=== PATIENT | female | born 1985 | race Caucasian/White ===

== ENCOUNTER 2016-08-19 17:49 | Emergency (ER) | payer OTHER ==
[2016-08-19 17:52] VITALS: BMI 26.1
[2016-08-19 20:01] LABS: URINE APPEARANCE CLOUDY; URINE BILIRUBIN NEGATIVE (NEGATIVE); URINE BLOOD NEGATIVE (NEGATIVE); URINE COLOR YELLOW; URINE GLUCOSE (UA) NEGATIVE (NEGATIVE); URINE KETONE 1+ (NEGATIVE); URINE LEUK ESTERASE TRACE (NEGATIVE); URINE NITRITE NEGATIVE (NEGATIVE); URINE PROTEIN 1+ (NEGATIVE); URINE UROBILINOGEN NEGATIVE E.U./dl (0.2-1.0)
[2016-08-19 20:07] LABS: URINE BACTERIA RARE /hpf (NONE SEEN); URINE MUCUS RARE; URINE RBC 6 /hpf (0-3); URINE WBC 14 /hpf (3-5); YEAST FEW
--- NOTE | 2016-08-19 20:16 | PDOC ---
History of Present Illness - General History Source: Patient, Old Records Exam Limitations: No Limitations - History of Present Illness Initial Comments: 08/19/16 21:17 The patient is a 31 year old female presenting with her family, with no significant past medical history, who presents to the emergency department with abdominal pain, nausea and vomiting onset today. She describes her abdominal pain as localized in the epigastric region, ranging from mild to moderate, with some mild radiation to the back. She denies any modifying factors. She reports that her vomit is nonbilious and nonbloody. She states taht her menstrual cycle has been absent since May 2016. For which she has followed up with her PMD, with no clear answer as to what is going on. The patient denies chest pain, shortness of breath, headache and dizziness. Denies fever, chills,diarrhea and constipation. Denies dysuria, frequency, urgency and hematuria. Allergies: None Past surgical history: None reported Social history: No alcohol, tobacco or drug use reported <Yaw Garcia - Last Filed: 08/19/16 23:57> <Moisés Barajas - Last Filed: 08/20/16 01:13> - General Chief Complaint: Pain Stated Complaint: STOMACH PAIN Time Seen by Provider: 08/19/16 19:51 Past History <Yaw Garcia - Last Filed: 08/19/16 23:57> - Past Medical History Asthma: No Cancer: No Cardiac Disorders: No Diabetes: No HTN: No Suicide Attempt (Hx): No Seizures: No Thyroid Disease: No - Surgical History Abdominal Surgery: Yes - Reproductive History Is Patient Now?: No (#): 5 Para: 2 Therapeutic (s) & number: Yes (1) Spontaneous : 1 - Psycho/Social/Smoking Cessation Hx Anxiety: No Suicidal Ideation: No Smoking History: Never smoked Have you smoked in the past 12 months: No Hx Alcohol Use: No Drug/Substance Use Hx: No Substance Use Type: None Hx Substance Use Treatment: No <Moisés Barajas - Last Filed: 08/20/16 01:13> - Past Medical History Allergies/Adverse Reactions: Allergies Allergy/AdvReac Type Severity Reaction Status Date / Time No Known Allergies Allergy Verified 08/19/16 17:52 Home Medications: Ambulatory Orders Amoxicillin/Potassium Clav [Augmentin 875-125 Tablet] 1 each PO BID #20 tablet 08/20/16 Tramadol HCl 50 mg PO TID #14 tablet MDD 3 08/20/16 Abd/GI Specific PMHX - Complaint Specific PMHX Colitis: No Diverticulitis: No Gall Bladder Disease: No GERD: No Hepatitis: No Irritable Bowel Synd (IBS): No Pancreatitis: No GI Ulcer Disease: No <Aggie Barajasis - Last Filed: 08/20/16 01:13> Review of Systems - Review of Systems Able to Perform ROS?: Yes Comments:: 08/19/16 21:18 CONSTITUTIONAL: No fever, no chills, no fatigue EYES: No visual changes ENT: No ear pain, no sore throat CARDIOVASCULAR: No chest pain, no palpitations RESPIRATORY: No cough, no SOB GI: (+) Abdominal pain, nausea and vomiting. No constipation, no diarrhea GENITOURINARY: No dysuria, no frequency, no hematuria MUSKULOSKELETAL: No backpain, no joint pain, no myalgias SKIN: No rash NEURO: No headache <Yaw Garcia - Last Filed: 08/19/16 23:57> *Physical Exam - Vital Signs Last Vital Signs Temp Pulse Resp BP Pulse Ox 97.4 F L 91 H 20 139/65 100 08/19/16 17:50 08/19/16 17:50 08/19/16 17:50 08/19/16 17:50 08/19/16 17:50 <Yaw Garcia - Last Filed: 08/19/16 23:57> - Vital Signs Last Vital Signs Temp Pulse Resp BP Pulse Ox 97.4 F L 91 H 20 139/65 100 08/19/16 17:50 08/19/16 17:50 08/19/16 17:50 08/19/16 17:50 08/19/16 17:50 - Physical Exam Comments: 08/19/16 19:05 EXAMINATION CONSTITUTIONAL: Well-appearing; well-nourished; in no apparent distress HEAD: Normocephalic; atraumatic EYES: PERRL; EOM intact; no scleral icterus ENMT: External appears normal; mm-dry NECK: Supple; non-tender; no cervical lymphadenopathy CARD: Normal S1, S2; no murmurs, rubs, or gallops RESP: Normal chest excursion with respiration; breath sounds clear and equal bilaterally; no wheezes, rhonchi, or rales ABD: Soft, non-distended; + mild epigastric and right upper quadrant tenderness to palpation; Chong's is negative; no palpable organomegaly, no palpable hernias; no CVA tenderness bilaterally; EXT: Normal ROM in all four extremities; non-tender to palpation; distal pulses intact SKIN: Warm, dry, no rash NEURO: No focal neurological deficiencies. <Moisés Barajas - Last Filed: 08/20/16 01:13> ED Treatment Course - LABORATORY CBC & Chemistry Diagram: 08/19/16 20:40 08/19/16 20:40 - ADDITIONAL ORDERS Additional order review: Laboratory Results 08/19/16 19:40 Urine Color Yellow Urine Appearance Cloudy Urine pH 9.0 H D Urine Protein 1+ H Urine Glucose (UA) Negative Urine Ketones 1+ H Urine Blood Negative Urine Nitrite Negative Urine Bilirubin Negative Urine Urobilinogen Negative Ur Leukocyte Esterase Trace H Urine RBC 6 Urine WBC 14 Ur Epithelial Cells Rare Urine Bacteria Rare Urine Mucus Rare Urine Yeast Few Urine HCG, Qual Negative 08/19/16 20:40 RBC 4.85 MCV 84.1 MCHC 32.8 RDW 12.8 D MPV 7.9 Neutrophils % 90.3 H D Lymphocytes % 6.8 L D Monocytes % 2.7 L Eosinophils % 0.1 Basophils % 0.1 - RADIOLOGY Radiograph Interpretation: 08/19/16 23:47 Abdominal ultrasound Reviewed by: Dr. Queenie Hidalgo Impression: Mild hepatomegaly with a slightly coarse echotexture, rule out fatty infiltration versus hepatocellular disease. Gallstone measuring 2.1 cm at or adjacent to the level of the neck with a small sluge. Thickening of the gallbladder wall and without evidence of pericholecystic free fluid. - Medications Given in the ED: ED Medications Discontinued Medications Generic Name Dose Route Start Last Admin Trade Name Freq PRN Reason Stop Dose Admin Al Hydroxide/Mg Hydroxide 30 ml 08/19/16 20:23 08/19/16 20:47 Mylanta Oral Suspension - PO 08/19/16 20:24 30 ml ONCE ONE Administration Famotidine/Sodium Chloride 50 mls @ 100 mls/hr 08/19/16 20:23 08/19/16 20:47 Pepcid 20 Mg Premixed Ivpb - IVPB 08/19/16 20:52 100 mls/hr ONCE ONE Administration <Yaw Garciae - Last Filed: 08/19/16 23:57> - LABORATORY CBC & Chemistry Diagram: 08/19/16 20:40 08/19/16 20:40 - ADDITIONAL ORDERS Additional order review: Laboratory Results 08/19/16 19:40 Urine Color Yellow Urine Appearance Cloudy Urine pH 9.0 H D Urine Protein 1+ H Urine Glucose (UA) Negative Urine Ketones 1+ H Urine Blood Negative Urine Nitrite Negative Urine Bilirubin Negative Urine Urobilinogen Negative Ur Leukocyte Esterase Trace H Urine HCG, Qual Negative <Moisés Barajas - Last Filed: 08/20/16 01:13> Medical Decision Making - Medical Decision Making 08/19/16 23:57 Dr. Briones was consulted regarding the patient at 11:52pm. He advices that the patient be discharged and follow up with him at his office. [phone] <Yaw Garcia - Last Filed: 08/19/16 23:57> - Medical Decision Making 08/20/16 01:07 Patient is a 31-year-old female who presented to the ER with atraumatic epigastric and right upper quadrant pain precipitated by fatty and greasy meals. Patient's had intermittent symptoms for the past several months, but they 've become more pronounced over the past several days. In the ER, patient is awake and alert, nontoxic-appearing, afebrile. Physical exam reveals mild right quadrant epigastric tenderness. CBC reveals leukocytosis with predominance of neutrophils. CMP reveals no evidence of abnormal LFTs. Right upper quadrant ultrasound reveals gallbladder stone, sludge and thickening of approximately 6.5 mm. There is no evidence of pericholecystic fluid. Given the presentation, I believe the patient's symptoms are consistent with chronic cholecystitis. I discussed the case with Dr. Briones who agrees with the plan of discharge with by mouth antibiotics, pain medication and outpatient follow-up. Patient has received a dose of IV Zosyn and has been advised of the plan of care and is expressed understanding. <Moisés Barajas - Last Filed: 08/20/16 01:13> *DC/Admit/Observation/Transfer - Attestations Scribe Attestion: 08/19/16 21:18 Documentation prepared by Yaw Garcia, acting as certified medical technician assistant for Moisés Barajas MD <Yaw Garcia - Last Filed: 08/19/16 23:57> <Moisés Barajas - Last Filed: 08/20/16 01:13> Diagnosis at time of Disposition: Chronic cholecystitis - Discharge Dispostion Disposition: HOME Condition at time of disposition: Stable - Referrals Referrals: Sally Curtis MD [Primary Care Provider] - Davion Briones MD [Staff Physician] - - Patient Instructions Printed Discharge Instructions: DI for Cholecystitis Additional Instructions: Your of chronic cholecystitis. Take antibiotics as prescribed. Follow up with surgery promptly. Return immediately for high fever, persistent vomiting, severe pain.
[2016-08-19] MEDS ORDERED: SODIUM CHLORIDE 1,000 ML IV STA (20:22)
[2016-08-19] MEDS ORDERED: MAG HYDROX/AL HYDROX/SIMETH 30 ML UNIT-DOSE CUP PO ONE (20:23)
[2016-08-19] MEDS ORDERED: FAMOTIDINE 20 MG/50 ML IVPB 50 ML IVPB ONE ×2 (20:23→20:30)
[2016-08-19] MEDS ORDERED: MAG HYDROX/AL HYDROX/SIMETH 30 ML UNIT-DOSE CUP ONE (20:30)
[2016-08-19 20:48] LABS: BASOPHIL 0.1 % (0-2.0); EOSINOPHIL 0.1 % (0-4.5); MCH 27.5 pg (25.7-33.7); MCHC 32.8 g/dl (32.0-36.0); MEAN CELL VOLUME 84.1 fl (80-96); MEAN PLT VOLUME 7.9 fl (7.5-11.1); NEUTROPHILS 90.3 % (42.8-82.8); PLATELET COUNT 332 K/MM3 (134-434); RDW 12.8 % (11.6-15.6); WHITE BLOOD COUNT 15.7 K/mm3 (4.0-10.0)
[2016-08-19 21:24] LABS: ALBUMIN 4.3 g/dl (3.4-5.0); ALK PHOS 123 U/L (45-117); ANION GAP 10 (8-16); BILIRUBIN,TOTAL 0.4 mg/dL (0.2-1.0); CALCIUM 9.4 mg/dL (8.5-10.1); CO2 27 mmol/L (21-32); COCKROFT - GAULT 150.5775; CREATININE 0.6 mg/dL (0.55-1.02); GLUCOSE,RANDOM 106 mg/dL (74-106); SGOT/AST 16 U/L (15-37); SGPT/ALT 21 U/L (12-78)
[2016-08-19] MEDS ORDERED: PIPERACILLIN/TAZOB 3.375 GM/50 ML PRE-DOCKED IV ONE (23:58)
[2016-08-20] MEDS ORDERED: PIPERACILLIN/TAZOB 3.375 GM 50 ML IVPB ONE (00:05)
[2016-08-20 01:27] VITALS: BP 118/77; PULSE 82; TEMP 98.1
== END 2016-08-20 01:27 | disposition home or self-care (01) ==
LOC: JER 17:49
PROC: 3E033GC Introduction of Other Therapeutic Substance into Peripheral Vein, Percutaneous Approach (ICD-10-PCS; principal; 2016-08-19)
DX: K81.1 Chronic cholecystitis (principal)
CPT/HCPCS: 36415; 76705-TC; 80053; 81003; 81015; 83690; 84703; 85025; 87086; 99282-25

== ENCOUNTER 2016-12-21 17:49 | Emergency (ER) | payer OTHER ==
[2016-12-21 17:53] VITALS: BMI 24.0
--- NOTE | 2016-12-21 18:23 | PDOC ---
Attending Attestation - Resident Resident Name: Canelo Montero - ED Attending Attestation I have performed the following: I have examined & evaluated the patient, The case was reviewed & discussed with the resident, I agree w/resident's findings & plan, Exceptions are as noted - HPI HPI: 12/21/16 18:33 31 yo female who finished her menses last week presents w 4 days of suprapubic tenderness and 1 day of left left sided pain above her L hip no h/o trauma recently PSH cholecytectomy 2 months ago - Physicial Exam PE: 12/21/16 18:37 Exam reveals a WNWD 31 yo female with 4 days of suprapubixc discomfort and 1 day of L abd pain near her L hip HEENT wnl lings cta b/l cvr [id number] abd soft,no rebound and no guarding ,very focused tenderness next to L hip no CVA tenderness extremities full range of motion.no deformity neuro axox3,ambulatory <Alberta Neville - Last Filed: 12/21/16 18:37> - Medical Decision Making 12/21/16 22:54 EXAM#: TYPE/EXAM: RESULT: [id number] US/PELVIC / BLADDER US Lower abdominal pain. Pelvis ultrasound, transvesical LMP is 12/03/2016 No prior is available for comparison. The uterus is anteverted measuring 7.8 x 4.2 cm with a homogeneous echotexture. Endometrial stripe measures 4.5 mm in thickness which is within normal limits. The left ovary measures 3.5 x 2.3 cm with a few small follicles and normal vascular flow. The right ovary measures 3 x 2.2 cm with a few small follicles and normal vascular flow. There is no free fluid in the cul-de-sac Impression: Unremarkable examination. The uterus and both ovaries appear unremarkable. Reported By: Queenie Hidalgo MD 12/21/16 2248 12/21/16 22:54 Documentation prepared by Nayeli Braxton, acting as medical claims representative for Alberta Neville MD <Nayeli Braxton - Last Filed: 12/21/16 22:55>
--- NOTE | 2016-12-21 18:46 | PDOC ---
History of Present Illness - General Chief Complaint: Pain Stated Complaint: PAIN, ACUTE Time Seen by Provider: 12/21/16 17:58 - History of Present Illness Initial Comments: 12/21/16 18:46 The patient is a 31 year old female with no significant PMH who presents for evaluation of lower abdominal pain. The patient reports a 4 day history of lower abdominal pain that she describes as crampy in nature that worsened today and moved to her left side prompting her presentation to the ED today. She denies any burning or pain on urination. She denies fevers, chills, SOB, chest pain, vaginal bleeding, vaginal discharge, or changes with bowel movements. Past History - Past Medical History Allergies/Adverse Reactions: Allergies Allergy/AdvReac Type Severity Reaction Status Date / Time No Known Allergies Allergy Verified 12/21/16 17:50 Home Medications: Ambulatory Orders NK [No Known Home Medication] 12/21/16 Asthma: No Cancer: No Cardiac Disorders: No Diabetes: No HTN: No Seizures: No Thyroid Disease: No - Surgical History Abdominal Surgery: Yes Cholecystectomy: Yes - Reproductive History Is Patient Now?: No (#): 5 Para: 2 Therapeutic (s) & number: Yes (1) Spontaneous : 1 - Suicide/Smoking/Psychosocial Hx Smoking History: Never smoked Have you smoked in the past 12 months: No Information on smoking cessation initiated: No Hx Alcohol Use: No Drug/Substance Use Hx: No Substance Use Type: None Hx Substance Use Treatment: No Review of Systems - Review of Systems Comments:: 12/21/16 19:01 Constitutional: No fevers, chills, fatigue, malaise HEENT: No Rhinorrhea, nasal congestion, Cardiovascular: No chest pain, syncope, palpitations, lightheadedness Respiratory: No Cough, SOB, Gastrointestinal: No Abdominal pain, Nausea, Vomiting, Constipation, Diarrhea, Genitourinary: No Dysuria, Frequency, Urgency, Hesitancy, Hematuria, Flank pain Musculoskeletal: No Myalgia, arthralgia Skin: No rashes, bruising, pallor Neurologic: Headache. No Dizziness, Numbness, Weakness, or Tingling *Physical Exam - Vital Signs Last Vital Signs Temp Pulse Resp BP Pulse Ox 98.1 F 80 18 132/55 100 12/21/16 17:50 12/21/16 17:50 12/21/16 17:50 12/21/16 17:50 12/21/16 17:50 - Physical Exam Comments: 12/21/16 19:05 General Appearance: Nourished. No Apparent Distress HEENT: EOMI, BRONWYN. No Pharyngeal Erythema, Tonsillar Exudate, Tonsillar Erythema Neck: No Cervical Lymphadenopathy Respiratory/Chest: Lungs Clear, Normal Breath Sounds. No Crackles, Rales, Rhonchi, Wheezing Cardiovascular: Regular Rhythm, Regular Rate. No Murmur, Gallops, Rubs Gastrointestinal/Abdominal: Normal Bowel Sounds, Soft. Mild tenderness to palpation of the left flank. No Guarding, Rebound, Pelvic Exam: Normal external exam. Cervical Os closed. No CMT, No right adnexal tenderness. Mild left adnexal tenderness. Musculoskeletal: No CVA Tenderness Extremity: Normal Capillary Refill Integumentary: Normal Color, Dry, Warm Neurologic: Fully Oriented, Alert, Normal Mood/Affect, Normal Response, Medical Decision Making - Medical Decision Making 12/21/16 19:06 The patient is a 31 year old female with no significant PMH who presents for evaluation of lower abdominal pain. Differential includes but is not limited to : UTI, Pylonephritis, Ovarian cyst, ectopic . Given the patient's pelvic exam with adenexal tenderness, we will obtain a transvaginal pelvic US to evaluate for ovarian cyst or torsion. We will also send a UA and urine preg to evaluate for UTI or Pyelonephritis. We will continue to monitor and reassess. 12/21/16 22:56 UA and Urine are negative. Pelvic US is negative as read by our radiologist. We feel comfortable discharging the patient home at this time with primary care follow up if her symptoms persist. We discussed the results with the patient as well as the plan and she voiced understanding and is agreeable. *DC/Admit/Observation/Transfer Diagnosis at time of Disposition: Lower abdominal pain - Discharge Dispostion Disposition: HOME Condition at time of disposition: Improved Admit: No - Referrals Referrals: Eduar Bloom [Primary Care Provider] - - Patient Instructions Printed Discharge Instructions: DI for Acute Abdomen Additional Instructions: Please return to the ER if you experience concerning or worsening symptoms. Please follow up with your primary care provider if you have persistent symptoms.
[2016-12-21 20:46] LABS: URINE APPEARANCE CLEAR; URINE BILIRUBIN NEGATIVE (NEGATIVE); URINE BLOOD NEGATIVE (NEGATIVE); URINE COLOR STRAW; URINE GLUCOSE (UA) NEGATIVE (NEGATIVE); URINE KETONE NEGATIVE (NEGATIVE); URINE NITRITE NEGATIVE (NEGATIVE); URINE PROTEIN NEGATIVE (NEGATIVE); URINE UROBILINOGEN NEGATIVE mg/dL (0.2-1.0)
[2016-12-21 22:34] LABS: URINE LEUK ESTERASE Negative (NEGATIVE)
[2016-12-21 23:11] VITALS: BP 122/83; PULSE 81; TEMP 98.2
== END 2016-12-21 23:11 | disposition home or self-care (01) ==
LOC: JER 17:49
DX: R10.30 Lower abdominal pain, unspecified (principal)
CPT/HCPCS: 76856-TC; 81003; 84703; 99283-25

== ENCOUNTER 2024-05-02 13:08 | Emergency (ER) | payer OTHER ==
[2024-05-02 13:24] VITALS: BP 124/86; PULSE 102; RESP 18; TEMP 98.6; BMI 30.2
[2024-05-02] MEDS ORDERED: ACETAMINOPHEN INJECTION 100 ML ONE (14:24)
[2024-05-02] MEDS ORDERED: ONDANSETRON 4 MG/2 ML VIAL ONE (14:25)
[2024-05-02 14:38] LABS: BASO % 0.3 % (0-2.0); EOS % 0.4 % (0-4.5); HEMATOCRIT 40.1 % (32.4-45.2); HEMOGLOBIN 13.2 GM/dL (10.7-15.3); LYMPH % 19.1 % (8-40); MCH 27.9 pg (25.7-33.7); MCHC 32.9 g/dl (32.0-36.0); MEAN CELL VOLUME 84.9 fl (80-96); MEAN PLT VOLUME 7.5 fl (7.5-11.1); MONO % 10.6 % (3.8-10.2); NEUT % 69.6 % (42.8-82.8); PLATELET COUNT 323 10^3/uL (134-434); RBC 4.73 M/mm3 (3.60-5.2); RDW 13.5 % (11.6-15.6); WHITE BLOOD COUNT 6.4 K/mm3 (4.0-10.0)
[2024-05-02 14:40] LABS: HCG,QUALITATIVE URINE Negative
[2024-05-02 14:41] LABS: EPI CELLS >36 /uL (0-25.1); HYALINE CASTS 4 /uL (0-3.1); URINE APPEARANCE CLOUDY; URINE BACTERIA 473 /uL (0-1359); URINE BILIRUBIN NEGATIVE (NEGATIVE); URINE COLOR DK YELLOW; URINE GLUCOSE (UA) NEGATIVE (NEGATIVE); URINE KETONE TRACE (NEGATIVE); URINE LEUK ESTERASE NEGATIVE (NEGATIVE); URINE NITRITE NEGATIVE (NEGATIVE); URINE PROTEIN 1+ (NEGATIVE); URINE WBC 48 /uL (0-25.8)
[2024-05-02 14:53] LABS: POTASSIUM 3.8 mmol/L (3.5-5.1)
[2024-05-02 14:55] LABS: ALBUMIN 3.5 g/dl (3.4-5.0)
[2024-05-02 14:57] LABS: MAGNESIUM 2.1 mg/dL (1.8-2.4)
[2024-05-02 14:59] LABS: BILIRUBIN,TOTAL 0.4 mg/dL (0.2-1); CREATININE 0.7 mg/dL (0.55-1.3)
[2024-05-02 15:01] LABS: BLOOD UREA NITROGEN 9.3 mg/dL (7-18); TOT PROT 7.4 g/dl (6.4-8.2)
[2024-05-02] MEDS: ONDANSETRON 4 MG/2 ML VIAL IVPUSH ONE (15:19)
[2024-05-02] MEDS: SODIUM CHLORIDE 0.9% 500 ML INFUS.BAG IV ONE (15:19)
[2024-05-02] MEDS: ACETAMINOPHEN 1000 MG/100 ML BAG IVPB ONE (15:19)
[2024-05-02 15:50] LABS: HIV INTERPRETATION NEGATIVE (NEGATIVE)
[2024-05-02 16:11] LABS: URINE RBC 88.7 /uL (0-23.9)
[2024-05-02] MEDS ORDERED: KETOROLAC TROMETHAMINE 15 MG/ML VIAL ONE (19:01)
[2024-05-02] MEDS: CIPROFLOXACIN 500 MG TABLET (RESTRICTED TO ID) PO ONE (19:13)
[2024-05-02] MEDS: KETOROLAC TROMETHAMINE 15 MG/ML VIAL IVPUSH ONE (19:39)
== END 2024-05-02 19:39 | disposition home or self-care (01) ==
LOC: JER 13:08
PROC: 3E033NZ Introduction of Analgesics, Hypnotics, Sedatives into Peripheral Vein, Percutaneous Approach (ICD-10-PCS; principal; 2024-05-02)
PROC: 3E033GC Introduction of Other Therapeutic Substance into Peripheral Vein, Percutaneous Approach (ICD-10-PCS; 2024-05-02)
DX: N39.0 Urinary tract infection, site not specified (principal); R00.0 Tachycardia, unspecified; R35.0 Frequency of micturition; R10.30 Lower abdominal pain, unspecified; R11.2 Nausea with vomiting, unspecified; R19.7 Diarrhea, unspecified; K92.1 Melena
CPT/HCPCS: 36415; 74176-TC; 80053; 81003; 83690; 83735; 84703; 85025; 86803; 87086; 87389; 99285-25; J0131